=== PATIENT | female | born 1975 | race Two or more races ===

== ENCOUNTER 2024-01-31 17:59 | Emergency (ER) | payer OTHER ==
[~2024-01-31] VITALS: Ht 152.4 cm; Wt 66.5 kg
[2024-01-31 18:58] VITALS: BP 140/64; PULSE 54; RESP 17; TEMP 97.3; O2SAT 100
[2024-01-31] MEDS ORDERED: IBUP1TAB4 PO (19:27)
[2024-01-31] MEDS: IBUPROFEN 400 MG TAB PO ONE (19:43)
== END 2024-01-31 20:02 | disposition home or self-care (01) ==
LOC: ER 17:59
DX: S80.02XA Contusion of left knee, initial encounter (principal); M54.9 Dorsalgia, unspecified; M25.522 Pain in left elbow; W18.39XA Other fall on same level, initial encounter; Y93.89 Activity, other specified; Y92.89 Other specified places as the place of occurrence of the external cause; Y99.8 Other external cause status